=== PATIENT | female | born 1960 | race Caucasian/White ===

== ENCOUNTER 2018-11-30 08:00 | Outpatient (CLI) | payer OTHER | END 2018-11-30 15:00 | disposition home or self-care (01) | LOC: LAB 08:00 | DX: E78.49 Other hyperlipidemia (principal); N91.2 Amenorrhea, unspecified; E34.8 Other specified endocrine disorders; N95.1 Menopausal and female climacteric states; E23.6 Other disorders of pituitary gland; R19.00 Intra-abdominal and pelvic swelling, mass and lump, unspecified site; N39.0 Urinary tract infection, site not specified; E55.9 Vitamin D deficiency, unspecified; N73.9 Female pelvic inflammatory disease, unspecified; A60.04 Herpesviral vulvovaginitis; Z34.90 Encounter for supervision of normal pregnancy, unspecified, unspecified trimester ==

== ENCOUNTER 2018-11-30 10:55 | Outpatient (CLI) | payer OTHER | END 2018-11-30 11:03 | disposition home or self-care (01) | LOC: MAMO-SONO 10:55 | DX: N60.11 Diffuse cystic mastopathy of right breast (principal); N60.12 Diffuse cystic mastopathy of left breast; Z12.31 Encounter for screening mammogram for malignant neoplasm of breast ==

== ENCOUNTER → 2018-11-30 | Outpatient (CLI) | payer OTHER | END | disposition home or self-care (01) | LOC: NUCLEAR 10:00 | DX: M81.0 Age-related osteoporosis without current pathological fracture (principal) ==

== ENCOUNTER → 2019-07-08 | Outpatient (CLI) | payer OTHER | END | disposition home or self-care (01) | LOC: RAD 10:13 | DX: Z01.89 Encounter for other specified special examinations (principal) ==

== ENCOUNTER → 2019-07-21 09:52 | Outpatient (CLI) | payer OTHER | END | disposition home or self-care (01) | LOC: EKG 09:52 → LAB 09:52 | DX: R94.31 Abnormal electrocardiogram [ECG] [EKG] (principal) ==

== ENCOUNTER 2020-08-15 11:07 | Outpatient (CLI) | payer OTHER | END 2020-08-15 11:17 | disposition home or self-care (01) | LOC: MAMO-SONO 11:07 | PROVIDERS: ATTEND Otolaryngology Otolaryngology/Facial Plastic Surgery | DX: Z12.31 Encounter for screening mammogram for malignant neoplasm of breast (principal); N64.59 Other signs and symptoms in breast ==

== ENCOUNTER 2021-08-20 15:01 | Outpatient (CLI) | payer OTHER | END 2021-08-20 15:06 | disposition home or self-care (01) | LOC: RAD 15:01 | PROVIDERS: ATTEND Physical Medicine & Rehabilitation | DX: M25.551 Pain in right hip (principal); M25.552 Pain in left hip ==

== ENCOUNTER 2023-09-25 09:03 | Outpatient (CLI) | payer OTHER | END 2023-09-25 09:16 | disposition home or self-care (01) | LOC: MAMO-SONO 09:03 | DX: N63.0 Unspecified lump in unspecified breast (principal); N64.4 Mastodynia ==

== ENCOUNTER 2024-10-11 10:25 | Outpatient (CLI) | payer OTHER | END 2024-10-11 10:27 | disposition home or self-care (01) | LOC: MAMO-SONO 10:25 | PROVIDERS: ATTEND Obstetrics & Gynecology | DX: N63.0 Unspecified lump in unspecified breast (principal); N64.4 Mastodynia ==

== ENCOUNTER 2025-03-07 10:33 | Outpatient (CLI) | payer OTHER | END 2025-03-07 10:36 | disposition home or self-care (01) | LOC: RAD 10:33 | PROVIDERS: ATTEND Ophthalmology | DX: R07.89 Other chest pain (principal) ==